=== PATIENT | female | born 1995 | race Caucasian/White ===

== ENCOUNTER → 2017-06-16 | Outpatient (REF) | payer OTHER ==
[~2017-06-16] MED LIST: AMOX875T; IBUP-1022 PO; MOTR200T44 PO
== END ==
LOC: M SFHCLERA 14:51
PROVIDERS: ATTEND Physician Assistant
DX: J02.9 Acute pharyngitis, unspecified (principal)

== ENCOUNTER 2017-06-18 22:21 | Emergency (ER) | payer OTHER ==
[~2017-06-18] VITALS: Ht 180.3 cm; Wt 113.6 kg
[2017-06-18] MEDS ORDERED: MOTR200T44 PO (22:32)
[2017-06-18] MEDS ORDERED: AMOX875T (22:32)
[2017-06-18] MEDS ORDERED: ONDANSETRON 4MG/2ML VIAL (J2405) IV ONE (23:00)
[2017-06-18] MEDS ORDERED: NS 1,000 ML IV ONE (23:00)
[2017-06-18] MEDS ORDERED: MORPHINE 4 MG/ML 1ML SYRINGE IV ONE (23:00)
[2017-06-18 23:28] LABS: BASO % 0.4 % (0.0-1.0); EOS # 0.3 10^3/uL (0.0-0.50); EOS % 4.1 % (0.0-3.0); IMMATURE GRANULOCYTE % 0.1 % (0-0); LYMPH # 2.8 10^3/uL (1.5-6.5); LYMPH % 41.2 % (24.0-44.0); MEAN CORPUSCULAR HEMOGLOBIN 28.3 pg (27.0-33.0); MEAN CORPUSCULAR HGB CONC 32.4 g/dl (32.0-36.5); MEAN CORPUSCULAR VOLUME 87.3 fl (80.0-96.0); MONO # 0.6 10^3/uL (0.0-0.8); MONO % 8.5 % (0.0-5.0); NEUTROPHILS # 3.1 10^3/uL (1.8-7.7); NEUTROPHILS % 45.7 % (36.0-66.0); PLATELET COUNT, AUTOMATED 259 10^3/uL (150-450); RED CELL DISTRIBUTION WIDTH 13.3 % (11.5-14.5); WHITE BLOOD COUNT 6.8 10^3/uL (4.0-10.0)
[2017-06-18 23:49] LABS: ANION GAP 8 MEQ/L (8-16); BLOOD UREA NITROGEN 13 MG/DL (7-18); CALCIUM LEVEL 8.5 MG/DL (8.5-10.1); CARBON DIOXIDE LEVEL 26 MEQ/L (21-32); CHLORIDE LEVEL 108 MEQ/L (98-107); CREATININE FOR GFR 0.78 MG/DL (0.55-1.02); GLOMERULAR FILTRATION RATE > 60.0 (>60); GLUCOSE, FASTING 122 MG/DL (70-105); POTASSIUM SERUM 3.9 MEQ/L (3.5-5.1); SODIUM LEVEL 142 MEQ/L (136-145)
[2017-06-18 23:53] LABS: ERYTHROCYTE SEDIMENTATION RATE 12 mm/hr (0-20)
[2017-06-19] MEDS ORDERED: ISOVUE-370 76% 100ML VIAL (Q9967) As Ordered ONE (00:01)
--- NOTE | 2017-06-19 01:46 | REPUSA ---
HISTORY: Left mastoid/neck swelling. COMPARISON: None. TECHNIQUE: Multiple thin section helically-acquired axially-displayed and helically acquired coronall y displayed computed tomographic images of the face are obtained from the mandible through the fronta l sinuses, with images obtained at soft tissue and bone window. 2D reformatted images were performed. FINDINGS: Unremarkable mastoid air cells. Mildly prominent cervical lymph nodes, probably reactive. Normal bony mineralization. No fractures. Normal orbits. Normal, clear paranasal sinuses. Normal oral and nasal cavities. Normal infratemporal fossa and deep parapharyngeal spaces with normal muscles of mastication. Normal parotid and submandibular glands. IMPRESSION: No evidence of mastoid effusion. Mildly prominent cervical lymph nodes, probably reactive. The largest measures 1.2 cm. Thank you for your kind referral of this patient
--- NOTE | 2017-06-19 01:46 | REPUSA ---
CLINICAL HISTORY: Left neck swelling. TECHNIQUE: Multiple axial CT images were obtained through the neck with IV contrast material. MPR cor onal and sagittal sequences were obtained. COMMENTS: Unremarkable mastoid air cells. No mastoid effusion. Mildly prominent cervical lymph nodes with the largest measuring 1.2 cm. The oropharyngeal soft tissues are normal and bilaterally symmetric. The piriform sinuses are normal. There is no supra or infraglottic laryngeal mass. The proximal trachea is normal. There is no paravertebral soft tissue mass. The salivary glands are normal. There is no deep cervical or jugular lymphadenopathy. The paravertebral soft tissue space is normal. Limited images through the posterior fossa demonstrate no evidence for tonsilar herniation. Evaluation of the visualized lung apices reveals no evidence for abnormality. There is no evidence for abnormal enhancement. IMPRESSION: Mildly prominent cervical lymph nodes with the largest measuring 1.2 cm. No mastoid effusion. No fluid collection or mass lesion. Thank you for your kind referral of this patient.
[2017-06-19] MEDS ORDERED: IBUP-1022 PO (01:55)
[2017-06-19 02:05] VITALS: BP 128/63
== END 2017-06-19 02:08 | disposition home or self-care (01) ==
LOC: M ED 22:21
DX: H92.02 Otalgia, left ear (principal); R59.0 Localized enlarged lymph nodes; F41.9 Anxiety disorder, unspecified
CPT/HCPCS: 70487; 70491; 80048; 83605; 85025; 85652; 86140; 96361; 96374; 96375; 99283; J2405; Q9967

== ENCOUNTER → 2017-11-12 | Outpatient (REF) | payer OTHER | LOC: M SFHCLERA 16:10 | DX: J02.9 Acute pharyngitis, unspecified (principal) ==

== ENCOUNTER → 2017-12-11 | Outpatient (CLI) | payer OTHER | LOC: M EKG 16:20 | DX: O24.011 Pre-existing type 1 diabetes mellitus, in pregnancy, first trimester (principal); Z3A.12 12 weeks gestation of pregnancy | CPT/HCPCS: 93005 ==

== ENCOUNTER 2018-04-24 05:39 | Emergency (ER) | payer OTHER ==
[2018-04-24] MEDS: AMOXICILLIN 500 MG CAP PO (07:23)
== END 2018-04-24 07:34 | disposition home or self-care (01) ==
LOC: M ED 05:39
DX: O99.89 Other specified diseases and conditions complicating pregnancy, childbirth and the puerperium (principal); H65.192 Other acute nonsuppurative otitis media, left ear; O24.419 Gestational diabetes mellitus in pregnancy, unspecified control; Z3A.32 32 weeks gestation of pregnancy; O99.343 Other mental disorders complicating pregnancy, third trimester; F41.9 Anxiety disorder, unspecified
CPT/HCPCS: 99283

== ENCOUNTER 2018-04-28 02:36 | Outpatient (CLI) | payer OTHER ==
[2018-04-28 04:55] LABS: HEMATOCRIT 37.3 % (36.0-47.0); HEMOGLOBIN 12.2 g/dl (12.0-15.5); MEAN CORPUSCULAR HGB CONC 32.7 g/dl (32.0-36.5); MEAN CORPUSCULAR VOLUME 85.6 fl (80.0-96.0); PLATELET COUNT, AUTOMATED 206 10^3/uL (150-450); RED BLOOD COUNT 4.36 10^6/uL (4.00-5.40); RED CELL DISTRIBUTION WIDTH 14.9 % (11.5-14.5)
[2018-04-28 05:24] LABS: ALBUMIN 2.8 GM/DL (3.2-5.2); ALBUMIN/GLOBULIN RATIO 0.72 (1.00-1.93); ALKALINE PHOSPHATASE 161 U/L (45-117); ALT/SGPT 51 U/L (12-78); ANION GAP 13 MEQ/L (8-16); AST/SGOT 63 U/L (7-37); BILIRUBIN,TOTAL 0.8 MG/DL (0.2-1.0); BLOOD UREA NITROGEN 7 MG/DL (7-18); CALCIUM LEVEL 8.5 MG/DL (8.5-10.1); CARBON DIOXIDE LEVEL 21 MEQ/L (21-32); CHLORIDE LEVEL 107 MEQ/L (98-107); CREATININE FOR GFR 0.48 MG/DL (0.55-1.30); GLOMERULAR FILTRATION RATE > 60.0 (>60); GLUCOSE, FASTING 89 MG/DL (70-100); LIPASE 133 U/L (73-393); POTASSIUM SERUM 3.7 MEQ/L (3.5-5.1); SODIUM LEVEL 141 MEQ/L (136-145); TOTAL PROTEIN 6.7 GM/DL (6.4-8.2)
[2018-04-28] MEDS: LR 1,000 ML IV ×2 (05:46)
[2018-04-28 05:50] LABS: APPEARANCE, URINE CLEAR (CLEAR); BACTERIA, URINE AUTO NEGATIVE (NEGATIVE); BILIRUBIN, URINE AUTO NEGATIVE (NEGATIVE); BLOOD, URINE BLOOD 2+ (NEGATIVE); COLOR, URINE YELLOW (YELLOW); GLUCOSE, URINE (UA) AUTO NEGATIVE (NEGATIVE); KETONE, URINE AUTO TRACE mg/dL (NEGATIVE); LEUKOCYTE ESTERASE, URINE AUTO NEGATIVE (NEGATIVE); NITRITE, URINE AUTO NEGATIVE (NEGATIVE); PROTEIN, URINE AUTO NEGATIVE (NEGATIVE); RBC, URINE AUTO 9 /HPF (0-3); SPECIFIC GRAVITY URINE AUTO 1.004 (1.002-1.035); SQUAMOUS EPITHELIAL CELL UR AU 1 /HPF (0-6); TRANSITIONAL EPITHELIAL AUTO <1 /HPF; WBC, URINE AUTO 1 /HPF (0-3)
== END 2018-04-28 07:01 | disposition home or self-care (01) ==
LOC: M LDO 02:36
DX: O26.893 Other specified pregnancy related conditions, third trimester (principal); R10.30 Lower abdominal pain, unspecified; O47.03 False labor before 37 completed weeks of gestation, third trimester; Z3A.33 33 weeks gestation of pregnancy
CPT/HCPCS: 76815

== ENCOUNTER 2018-05-31 16:27 | Outpatient (CLI) | payer OTHER | END 2018-05-31 17:30 | disposition home or self-care (01) | LOC: M LDO 16:27 | DX: O47.9 False labor, unspecified (principal); Z3A.38 38 weeks gestation of pregnancy | CPT/HCPCS: 59025 ==

== ENCOUNTER 2018-06-03 12:57 | Outpatient (CLI) | payer OTHER | END 2018-06-03 14:35 | disposition home or self-care (01) | LOC: M LDO 12:57 | DX: O26.893 Other specified pregnancy related conditions, third trimester (principal); O24.419 Gestational diabetes mellitus in pregnancy, unspecified control; O36.0130 Maternal care for anti-D [Rh] antibodies, third trimester, not applicable or unspecified; O13.3 Gestational [pregnancy-induced] hypertension without significant proteinuria, third trimester; Z3A.38 38 weeks gestation of pregnancy | CPT/HCPCS: 76815 ==

== ENCOUNTER 2018-06-07 09:28 | Inpatient (IN) | payer OTHER ==
[2018-06-07 11:07] LABS: HEMATOCRIT 35.9 % (36.0-47.0); MEAN CORPUSCULAR HEMOGLOBIN 28.6 pg (27.0-33.0); MEAN CORPUSCULAR HGB CONC 33.4 g/dl (32.0-36.5); MEAN CORPUSCULAR VOLUME 85.7 fl (80.0-96.0); PLATELET COUNT, AUTOMATED 185 10^3/uL (150-450); RED BLOOD COUNT 4.19 10^6/uL (4.00-5.40); RED CELL DISTRIBUTION WIDTH 14.9 % (11.5-14.5); WHITE BLOOD COUNT 5.4 10^3/uL (4.0-10.0)
[2018-06-07 11:31] LABS: ALT/SGPT 22 U/L (12-78); LDH LACTATE DEHYDROGENASE 167 U/L (84-246); URIC ACID 3.9 MG/DL (2.6-6.0)
[2018-06-07 11:31] LABS: AST/SGOT 17 U/L (7-37)
[2018-06-07 12:57] LABS: BEDSIDE GLUCOSE 117 MG/DL (70-105)
[2018-06-07 15:52] LABS: BEDSIDE GLUCOSE 66 MG/DL (70-105)
[2018-06-07] MEDS: LACTATED RINGER'S 1000 ML IV (17:20)
[2018-06-07] MEDS: OXYTOCIN DRIP 30 UNITS in APPROPRIATE DILUENT 1 EA IV (17:27)
[2018-06-07 17:56] LABS: BEDSIDE GLUCOSE 141 MG/DL (70-105)
[2018-06-07] MEDS: LR 1,000 ML IV (18:27)
[2018-06-07] MEDS: BUTORPHANOL 2 MG/ML INJ (J0595) IV (21:00)
[2018-06-07 22:04] LABS: BEDSIDE GLUCOSE 80 MG/DL (70-105)
[2018-06-08 00:09] LABS: BEDSIDE GLUCOSE 85 MG/DL (70-105)
[2018-06-08 00:14] LABS: BEDSIDE GLUCOSE 76 MG/DL (70-105)
[2018-06-08 04:03] LABS: BEDSIDE GLUCOSE 93 MG/DL (70-105)
[2018-06-08 04:08] LABS: BEDSIDE GLUCOSE 93 MG/DL (70-105)
[2018-06-08] MEDS ORDERED: fentaNYL 100 MCG/2 ML INJECTION (J3010) As Ordered (06:01)
[2018-06-08] MEDS ORDERED: FENTANYL 2MCG/ML ROPIVACAINE 0.2% IN 0.9% NACL 100ML IVBAG As Ordered (06:02)
[2018-06-08 06:19] LABS: BEDSIDE GLUCOSE 76 MG/DL (70-105)
[2018-06-08] MEDS ORDERED: REFRIGERATOR IV KEYS XX (06:47)
[2018-06-08] MEDS ORDERED: FENTANYL/ROPIVACAINE/NACL BAG 100 ML EPIDURAL (06:47)
[2018-06-08] MEDS ORDERED: EPIDURAL/PCA KEYS XX (06:47)
[2018-06-08] MEDS ORDERED: EPIDURAL COMMENT XX (06:47)
[2018-06-08] MEDS ORDERED: LACTATED RINGER'S 1000 ML IV (06:47)
[2018-06-08] MEDS ORDERED: ONDANSETRON 4MG/2ML VIAL (J2405) IV ×2 (06:47→14:15)
[2018-06-08] MEDS ORDERED: ePHEDrine SULFATE 25 MG/5 ML(5MG/ML) SYRINGE IV (06:47)
[2018-06-08] MEDS ORDERED: NALOXONE INJ 0.4 MG/1 ML VIAL (J2310) IV (06:47)
[2018-06-08] MEDS ORDERED: diphenhydrAMINE INJ 50MG/ML VIAL (J1200) IV (06:47)
[2018-06-08 08:09] LABS: BEDSIDE GLUCOSE 88 MG/DL (70-105)
[2018-06-08] MEDS: LR 1,000 ML IV (10:08)
[2018-06-08 10:15] LABS: BEDSIDE GLUCOSE 68 MG/DL (70-105)
[2018-06-08 12:00] LABS: BEDSIDE GLUCOSE 75 MG/DL (70-105)
[2018-06-08] MEDS: OXYTOCIN DRIP 30 UNITS in APPROPRIATE DILUENT 1 EA IV ×2 (14:07→14:50)
[2018-06-08] MEDS ORDERED: ERYTHROMYCIN OPHTH OINT OU (14:15)
[2018-06-08] MEDS ORDERED: HEPATITIS B VAC *BIRTH DOSE ONLY*(RECOMBIVAX HB) 5MCG/0.5ML VL/SYR IM (14:15)
[2018-06-08] MEDS ORDERED: DIBUCAINE 1% OINTMENT 30GM TOP (14:15)
[2018-06-08] MEDS ORDERED: PHYTONADIONE 1 MG/0.5 ML SYRINGE (J3430) IM (14:15)
[2018-06-08] MEDS: IBUPROFEN 800 MG TAB PO (16:43)
[2018-06-08] MEDS: MEASLES,MUMPS,RUBELLA VACCINE INJ (MMR-II) (90707) SC (17:37)
[2018-06-08] MEDS: DOCUSATE SODIUM 100 MG CAP PO (22:19)
[2018-06-09] MEDS: IBUPROFEN 800 MG TAB PO ×3 (02:56→18:28)
[2018-06-09 07:33] LABS: GLUCOSE, FASTING 135 MG/DL (70-100)
[2018-06-09] MEDS: PRENATAL VITAMINS CHEWABLE TABLET PO (08:51)
[2018-06-09] MEDS: DOCUSATE SODIUM 100 MG CAP PO ×2 (08:51→20:27)
[2018-06-09 10:10] LABS: FETAL SCREEN PROF. 1 1
[2018-06-09] MEDS: RHOGAM 300 MCG (1500 IU) INJ (J2790) IM (10:24)
[2018-06-09 15:51] LABS: BEDSIDE GLUCOSE 85 MG/DL (70-105)
[2018-06-09 15:51] LABS: BEDSIDE GLUCOSE 121 MG/DL (70-105)
[2018-06-09 15:51] LABS: BEDSIDE GLUCOSE 102 MG/DL (70-105)
[2018-06-09] MEDS: ACETAMINOPHEN TAB 650MG DOSE (2X325MG) PO (16:40)
[2018-06-09 20:26] LABS: BEDSIDE GLUCOSE 105 MG/DL (70-105)
[2018-06-10 07:09] LABS: BEDSIDE GLUCOSE 93 MG/DL (70-105)
[2018-06-10] MEDS: DOCUSATE SODIUM 100 MG CAP PO (08:35)
[2018-06-10] MEDS: PRENATAL VITAMINS CHEWABLE TABLET PO (08:35)
[2018-06-10] MEDS: IBUPROFEN 800 MG TAB PO (08:38)
== END 2018-06-10 11:10 | disposition home or self-care (01) | DRG 807 ==
LOC: M LDI 09:28 → M OBS 06-08 16:25
PROVIDERS: Midwife
PROC: 3E033VJ Introduction of Other Hormone into Peripheral Vein, Percutaneous Approach (ICD-10-PCS; 2018-06-07)
PROC: 10E0XZZ Delivery of Products of Conception, External Approach (ICD-10-PCS; principal; 2018-06-08)
PROC: 0HQ9XZZ Repair Perineum Skin, External Approach (ICD-10-PCS; 2018-06-08)
PROC: 10907ZC Drainage of Amniotic Fluid, Therapeutic from Products of Conception, Via Natural or Artificial Opening (ICD-10-PCS; 2018-06-08)
DX: O10.02 Pre-existing essential hypertension complicating childbirth (principal); Z37.0 Single live birth; O24.420 Gestational diabetes mellitus in childbirth, diet controlled; Z3A.39 39 weeks gestation of pregnancy; O99.214 Obesity complicating childbirth; E66.9 Obesity, unspecified; Z68.35 Body mass index [BMI] 35.0-35.9, adult; O70.0 First degree perineal laceration during delivery

== ENCOUNTER 2018-06-25 10:16 | Emergency (ER) | payer OTHER ==
[~2018-06-25] VITALS: Ht 180.3 cm; Wt 97.7 kg
[~2018-06-25 10:16] MED LIST changes: +AMOX500C PO; +CEFD1CAP8 PO; +COLA100C5 PO; +DIBU10OI TOP; +IBUP-1114 PO; +MAPA500T2 PO; +PREN1TAB18 PO
[2018-06-25] MEDS ORDERED: ONDANSETRON 4MG/2ML VIAL (J2405) IV ONE (11:00)
[2018-06-25] MEDS ORDERED: MORPHINE 2 MG/ML 1ML SYRINGE (J2270) IV ONE (11:00)
[2018-06-25] MEDS ORDERED: NS 1,000 ML IV ONE (11:00)
[2018-06-25 11:30] LABS: BASO % 0.6 % (0.0-1.0); EOS # 0.1 10^3/uL (0.0-0.50); EOS % 2.8 % (0.0-3.0); HEMATOCRIT 45.3 % (36.0-47.0); LYMPH # 1.1 10^3/uL (1.5-6.5); LYMPH % 30.2 % (24.0-44.0); MEAN CORPUSCULAR HEMOGLOBIN 28.4 pg (27.0-33.0); MEAN CORPUSCULAR HGB CONC 33.1 g/dl (32.0-36.5); MEAN CORPUSCULAR VOLUME 85.8 fl (80.0-96.0); MONO # 0.3 10^3/uL (0.0-0.8); MONO % 9.3 % (0.0-5.0); NEUTROPHILS % 56.5 % (36.0-66.0); PLATELET COUNT, AUTOMATED 252 10^3/uL (150-450); RED BLOOD COUNT 5.28 10^6/uL (4.00-5.40); WHITE BLOOD COUNT 3.5 10^3/uL (4.0-10.0)
[2018-06-25 12:11] LABS: ALBUMIN 3.5 GM/DL (3.2-5.2); ALT/SGPT 1071 U/L (12-78); AMYLASE 30 U/L (25-115); BILIRUBIN,TOTAL 1.5 MG/DL (0.2-1.0); BLOOD UREA NITROGEN 14 MG/DL (7-18); CALCIUM LEVEL 8.9 MG/DL (8.5-10.1); CARBON DIOXIDE LEVEL 26 MEQ/L (21-32); CHLORIDE LEVEL 105 MEQ/L (98-107); CREATININE FOR GFR 0.72 MG/DL (0.55-1.30); GLOMERULAR FILTRATION RATE > 60.0 (>60); GLUCOSE, FASTING 103 MG/DL (70-100); LIPASE 141 U/L (73-393); POTASSIUM SERUM 4.2 MEQ/L (3.5-5.1); SODIUM LEVEL 140 MEQ/L (136-145); TOTAL PROTEIN 7.3 GM/DL (6.4-8.2)
[2018-06-25] MEDS ORDERED: ISOVUE-370 76% 100ML VIAL (Q9967) As Ordered ONE (12:23)
--- NOTE | 2018-06-25 12:46 | REP ---
Clinical: Acute chest pain. Technique: Axial contrast enhanced images from the thoracic inlet to the upper abdomen using 100 ml Isovue 370 intravenous contrast material with coronal and sagittal re-formations. Findings: Satisfactory enhancement of the pulmonary vasculature is achieved and no filling defects are identified to suggest pulmonary embolus. Thoracic aorta is normal caliber without aneurysm or dissection. Heart and pericardium are normal. Bilateral lung samano are well aerated and clear without acute pulmonary parenchymal consolidation or atelectasis. No nodule or mass lesion. No pleural effusion/reaction. No pneumothorax. No adenopathy. Impression: No evidence for pulmonary embolus. No acute pleuroparenchymal or mediastinal process. Electronically Signed by Juan J Sanchez MD 06/25/2018 12:37 P
--- NOTE | 2018-06-25 13:47 | REP ---
Clinical: Elevated liver function tests Technique: Grigsby scale ultrasound using curved array transducer. Findings: The liver and pancreas are normal in contour, size, and echogenicity without focal hepatic or pancreatic lesions identified. The gallbladder demonstrates small amount of layering gravel/sludge and trace pericholecystic fluid with minimal wall thickening to 3.6 mm, but no sonographic Lindquist's sign or biliary ductal dilatation. The common bile duct measures 3.4 mm diameter. The right kidney is normal in reniform shape without hydronephrosis and measures 12.5 x 5.7 x 4.4 cm. No ascites. Visualized portions of the abdominal aorta normal. Impression: Small amount of layering sludge/gravel with trace pericholecystic fluid and minimal gallbladder wall thickening. No Lindquist's sign or biliary ductal dilatation to definitively diagnosis of acute cholecystitis by ultrasound. Electronically Signed by Juan J Sanchez MD 06/25/2018 01:38 P
[2018-06-25 14:15] VITALS: BP 129/79
[2018-06-25] MEDS ORDERED: ZOFR4TAB14 PO (14:15)
[2018-06-25] MEDS ORDERED: NORCOTAB PO (14:15)
--- NOTE | 2018-06-26 07:38 | ED PDOC ---
Post-Departure Follow-Up radiology report faxed to [facility] Daly Montgomery MD Jun 26, 2018 07:38
== END 2018-06-25 14:23 | disposition home or self-care (01) ==
LOC: M ED 10:16
DX: K80.20 Calculus of gallbladder without cholecystitis without obstruction (principal); F41.9 Anxiety disorder, unspecified
CPT/HCPCS: 36415; 71275; 76705; 80048; 80076; 81000; 81001; 82150; 83690; 85025; 85379; 87086; 96361; 96374; 96375; 99284; J2270; J2405; Q9967

== ENCOUNTER 2018-09-05 22:19 | Emergency (ER) | payer OTHER ==
[~2018-09-05] VITALS: Ht 180.3 cm; Wt 103.2 kg
[~2018-09-05 22:19] MED LIST changes: +NORCOTAB PO; +ZOFR4TAB14 PO
[2018-09-05 23:34] LABS: BASO % 0.2 % (0.0-1.0); EOS # 0.3 10^3/uL (0.0-0.50); EOS % 3.6 % (0.0-3.0); HEMATOCRIT 43.3 % (36.0-47.0); HEMOGLOBIN 14.2 g/dl (12.0-15.5); LYMPH # 3.3 10^3/uL (1.5-6.5); LYMPH % 40.9 % (24.0-44.0); MEAN CORPUSCULAR HGB CONC 32.8 g/dl (32.0-36.5); MEAN CORPUSCULAR VOLUME 85.2 fl (80.0-96.0); MONO # 0.7 10^3/uL (0.0-0.8); MONO % 8.2 % (0.0-5.0); NEUTROPHILS # 3.7 10^3/uL (1.8-7.7); NEUTROPHILS % 46.7 % (36.0-66.0); PLATELET COUNT, AUTOMATED 246 10^3/uL (150-450); RED BLOOD COUNT 5.08 10^6/uL (4.00-5.40)
[2018-09-06 00:14] LABS: HCG, SERUM QUALITATIVE NEGATIVE (NEGATIVE)
[2018-09-06 00:28] LABS: ALBUMIN 3.8 GM/DL (3.2-5.2); ALT/SGPT 46 U/L (12-78); BILIRUBIN,DIRECT 0.1 MG/DL (0.0-0.2); BILIRUBIN,TOTAL 0.4 MG/DL (0.2-1.0); BLOOD UREA NITROGEN 16 MG/DL (7-18); CALCIUM LEVEL 8.2 MG/DL (8.5-10.1); CARBON DIOXIDE LEVEL 26 MEQ/L (21-32); CHLORIDE LEVEL 108 MEQ/L (98-107); CREATININE FOR GFR 0.71 MG/DL (0.55-1.30); GLOMERULAR FILTRATION RATE > 60.0 (>60); GLUCOSE, FASTING 101 MG/DL (70-100); LIPASE 128 U/L (73-393); POTASSIUM SERUM 3.9 MEQ/L (3.5-5.1); SODIUM LEVEL 143 MEQ/L (136-145); TOTAL PROTEIN 7.3 GM/DL (6.4-8.2)
[2018-09-06] MEDS ORDERED: ONDANSETRON 4MG/2ML VIAL (J2405) IV ONE (01:00)
[2018-09-06] MEDS ORDERED: KETOROLAC 30 MG/ML VIAL (J1885) IV ONE (01:00)
--- NOTE | 2018-09-06 03:33 | REPVR ---
EXAM: US Abdomen Limited, Right Upper Quadrant EXAM DATE/TIME: 09/06/2018 1:47 AM CLINICAL HISTORY: 23 years old, female; Pain; Abdominal pain; Colic; Additional info: Upper abd pain, HX of gb dz TECHNIQUE: Real-time ultrasound of the abdomen with image documentation. Examination was focused on the right upper quadrant. COMPARISON: GALLBLADDER US 06/25/2018 1:15 PM FINDINGS: Liver: Coarse echogenic attenuating liver parenchyma. Gallbladder: Cholelithiasis. No evidence of acute cholecystitis. Common bile duct: Normal. No stones. No dilation. Pancreas: Visualized pancreas is unremarkable. Right kidney: Normal. No mass. No hydronephrosis. IMPRESSION: Cholelithiasis. No evidence of acute cholecystitis. Steatosis. Electronically signed by: Andrei Rajput On 09/06/2018 03:33:22 AM
[2018-09-06] MEDS ORDERED: HYOS1TAB PO (03:45)
[2018-09-06] MEDS ORDERED: HYOSCYAMINE SULFATE 0.125 MG SUBL TABLET PO ONE (03:45)
[2018-09-06 03:51] VITALS: BP 121/71
== END 2018-09-06 04:29 | disposition home or self-care (01) ==
LOC: M ED 22:19
DX: K80.70 Calculus of gallbladder and bile duct without cholecystitis without obstruction (principal); R11.0 Nausea
CPT/HCPCS: 76705; 80048; 80076; 81001; 83690; 84703; 85025; 87086; 96374; 96375; 99283; J1885; J2405

== ENCOUNTER 2018-09-13 09:12 | Day surgery (SDC) | payer OTHER ==
[~2018-09-13] VITALS: Ht 180.3 cm; Wt 104.7 kg
[~2018-09-13 09:12] MED LIST changes: +HYOS1TAB PO; +LIDOCAINE 1% MDV 20ML VIAL SQ PRN; +LIDOCAINE 2% INJ 100 MG/5 ML SDV (FOR ANES.) As Ordered ONE; +LR 1,000 ML IV ONE; +MIDAZOLAM INJ 2 MG/2 ML VIAL (J2250) As Ordered ONE; +PROPOFOL 200 MG/20 ML VIAL As Ordered ONE; +ROCURONIUM BROMIDE 50 MG/5 ML VIAL As Ordered ONE; +fentaNYL 250 MCG/5 ML INJECTION (J3010) As Ordered ONE
[2018-09-13] MEDS ORDERED: BUPIVACAINE/EPIN 0.25% 30 ML VIAL As Ordered ONE (09:40)
[2018-09-13 09:54] LABS: URINE PREG TEST NEGATIVE (NEGATIVE)
[2018-09-13] MEDS ORDERED: MIDAZOLAM INJ 2 MG/2 ML VIAL (J2250) As Ordered ONE (10:00)
[2018-09-13] MEDS ORDERED: SUGAMMADEX SODIUM 500 MG/5 ML VIAL (BRIDION) As Ordered ONE (10:26)
[2018-09-13] MEDS ORDERED: ONDANSETRON 4MG/2ML VIAL (J2405) As Ordered ONE (10:26)
[2018-09-13] MEDS ORDERED: dexameTHASONE 4 MG/ML 1ML VIAL (J1100) As Ordered ONE (10:26)
[2018-09-13] MEDS ORDERED: METOCLOPRAMIDE INJ 10MG/2ML VIAL (J2765) As Ordered ONE (10:26)
[2018-09-13] MEDS ORDERED: KETOROLAC 60 MG/2 ML VIAL (J1885) As Ordered ONE (10:26)
[2018-09-13] MEDS ORDERED: diphenhydrAMINE INJ 50MG/ML VIAL (J1200) As Ordered ONE (10:28)
[2018-09-13] MEDS: PERCOCET 5MG/325MG TAB PO PRN ×2 (11:15→11:52)
[2018-09-13] MEDS ORDERED: PERCOCET 5MG/325MG TAB As Ordered ONE (11:17)
[2018-09-13] MEDS ORDERED: LR 1,000 ML IV SCH (11:45)
[2018-09-13] MEDS ORDERED: NORCO, ANEXSIA 5/325MG TABLET (HYDROcodone/ACETAMINOPHEN) PO PRN (11:45)
[2018-09-13] MEDS ORDERED: METOCLOPRAMIDE INJ 10MG/2ML VIAL (J2765) IV PRN (11:45)
[2018-09-13] MEDS ORDERED: ONDANSETRON 4MG/2ML VIAL (J2405) IV PRN (11:45)
[2018-09-13] MEDS ORDERED: fentaNYL 100 MCG/2 ML INJECTION (J3010) IV PRN (11:45)
[2018-09-13] MEDS ORDERED: NORCOTAB PO (12:49)
[2018-09-13 13:50] VITALS: BP 135/74
--- NOTE | 2018-09-13 23:52 | RO ---
DATE OF PROCEDURE: 09/13/2018 PREOPERATIVE DIAGNOSIS: Symptomatic cholelithiasis. POSTOPERATIVE DIAGNOSIS: Symptomatic cholelithiasis. PROCEDURE: Laparoscopic cholecystectomy. SURGEON: Dr. Avila Joaquin ERECTING ENGINEER: None. ANESTHESIA: General. ESTIMATED BLOOD LOSS: 5 mL. COMPLICATIONS: None. INDICATION FOR PROCEDURE: The patient is a 23-year-old female who presents with persistent right upper quadrant abdominal pain for the past couple of months. Recommendation was to proceed with laparoscopic possible open cholecystectomy. Risks and benefits of the procedure not limited to but including bleeding, infection, hernia formation, damage to surrounding structures and need for further surgery were discussed in detail with the patient. Informed consent was obtained, procedure was planned. DESCRIPTION OF PROCEDURE: The patient was brought back to operating room three, after sufficient sedation, the abdomen was sterilely prepped and draped. Next, a time-out was done to confirm proper patient, proper procedure. Next, a stab incision was made in the in left upper quadrant, Veress needle was inserted and the abdomen was insufflated to 15 mmHg. Next, the 5 mm incision was made supraumbilically in the midline. A 5 mm Optiview port was used to gain access to the abdomen. Once the abdomen was entered, Veress needle site was examined. There were no signs of any injury. Veress needle was then removed. 11 mm port was placed subxiphoid, two 5 mm ports in the right upper quadrant. The fundus of the gallbladder grasped, elevated up towards the right shoulder. Omental adhesions were gently taken down with blunt dissection. Then, at the fundus, dissection was completed bluntly until the cystic duct and artery were both clearly identified. They were both then doubly clipped and cut. Gallbladder was then removed from gallbladder fossa using electrocautery, brought out through the subxiphoid port site using a 10 mm EndoCatch bag. The abdomen was examined to confirm hemostasis. The abdomen was then desufflated. Skin incisions closed with #4-0 Vicryl subcuticular sutures. The abdomen was cleaned and dried. Steri-Strips, 4x4, and tape were applied, thus ending procedure.
== END 2018-09-13 13:50 | disposition home or self-care (01) ==
LOC: M SDC 09:12
PROVIDERS: ATTEND Surgery
DX: K80.20 Calculus of gallbladder without cholecystitis without obstruction (principal); F41.9 Anxiety disorder, unspecified
CPT/HCPCS: 47562; 84703; 88304; J1200; J1885; J2250; J2405; J2765; J3010

== ENCOUNTER 2019-06-27 19:58 | Emergency (ER) | payer OTHER ==
[~2019-06-27] VITALS: Ht 180.3 cm; Wt 111.8 kg
[~2019-06-27 19:58] MED LIST changes: +HYDR-3715 PO; -LIDOCAINE 1% MDV 20ML VIAL SQ PRN; -LIDOCAINE 2% INJ 100 MG/5 ML SDV (FOR ANES.) As Ordered ONE; -LR 1,000 ML IV ONE; -MIDAZOLAM INJ 2 MG/2 ML VIAL (J2250) As Ordered ONE; -NORCOTAB PO; -PROPOFOL 200 MG/20 ML VIAL As Ordered ONE; -ROCURONIUM BROMIDE 50 MG/5 ML VIAL As Ordered ONE; -fentaNYL 250 MCG/5 ML INJECTION (J3010) As Ordered ONE
[2019-06-27] MEDS ORDERED: PRENTAB9 PO (20:06)
[2019-06-27] MEDS ORDERED: ACETAMINOPHEN 500 MG TAB PO ONE (22:00)
[2019-06-27 22:26] VITALS: BP 138/69
== END 2019-06-27 22:27 | disposition home or self-care (01) ==
LOC: M ED 19:58
DX: O9A.212 Injury, poisoning and certain other consequences of external causes complicating pregnancy, second trimester (principal); S46.912A Strain of unspecified muscle, fascia and tendon at shoulder and upper arm level, left arm, initial encounter; X58.XXXA Exposure to other specified factors, initial encounter; Y92.89 Other specified places as the place of occurrence of the external cause; H93.92 Unspecified disorder of left ear; Z3A.21 21 weeks gestation of pregnancy; O99.342 Other mental disorders complicating pregnancy, second trimester; F41.9 Anxiety disorder, unspecified

== ENCOUNTER 2019-10-31 16:25 | Inpatient (IN) | payer OTHER ==
[~2019-10-31] VITALS: Ht 180.3 cm; Wt 118.4 kg
[~2019-10-31 16:25] MED LIST changes: +PRENTAB9 PO
--- NOTE | 2019-10-31 17:43 | HPEPDOC ---
Obstetrical History & Physical General Date of Admission October 31, 2019 at 16:25 History of Present Illness patient is a 24 yo @ 39+1 wks gestation presents for social induction. spouse was deployed and induction scheduled for him to coordinate coming home for delivery of baby. denies cramping/vb. Chief Complaint: Other Information Provided By: Patient Age: 24 : 2 Term: 1 Pre-term: 0 Abortions: 0 Livin Care Care: Good Care Dating Final EDC: November 06, 2019 Final EDC for Daily Update: November 06, 2019 Final EDC by: LMP, 1st trimester (US) Past Medical History Past Obstetrical History : Past Obstetrical History: Multigravida ( x 1) Type of Delivery: Spontaneous Vaginal Del. Past Medical History Medical History obesity Surgical History: Denies/None Family History Significant Family History: No pertinent family hx Social History Marital Status: Family situation: Spouse/partner home * Smoker: non-smoker Alcohol: Denies Drugs: denies Imunizations Tdap status: declined Influenza Status: current Allergies Coded Allergies: No Known Allergies (Unverified , 06/18/17) Medications Scheduled No.137/Iron/Folic Acd ( Vitamin Tablet) 1 Each Tablet, 1 TAB PO DAILY Physical Examination Physical Examination GENERAL: Alert and oriented times three. BREAST: . ABDOMEN: Gravid and non-tender to touch. FETUS: Is vertex (VTX) by sterile vaginal examination (SVE), fetus is vertex (VTX) by Colten, confirmed with TAUS (OP) HEART RATE: Regular rate and rhythm. LUNGS: Clear to auscultation (CTA). EXTREMITIES: No edema. No clonus. EFW: 3800gm Laboratory Data 24H LABS Laboratory Tests 2 10/31/19 16:30: Serology Scanned Report Hepatitis B Testing Pertinent Laboratoy Data Blood Type: A- RBC Antibody Screen: Negative HIV: Negative Hepatitis B: Negative Rapid Plasma Reagin: Nonreactive Rubella: Immune Varicella: Immune Chlamydia/Gonorrhea: Negative Group B Streptococcus: Negative Anatomy Ultrasound Placenta Location: Anterior Normal Anatomy: Yes Placenta Previa: No Vaginal Examination Dilation: None Effacement: 30% Station: Other (high) Cervical Consistency: Medium Cervical Position: Posterior Presentation: Cephalic presentation Assessment Heart Rate (FHR): 140 Variability: Moderate Accelerations: Positive Decelerations: None Tocometer Contractions: Yes Frequency: irregular Assessment/Plan Assessment patient is a 24 yo @ 39+1wks gestation admitted for social induction. p atient without concerns. patient counseled on external and internal monitoring. Discussed risks of emergent section, infection, bleeding requiring blood transfusion and associated risks, use of forceps or vacuums for operative vaginal delivery and associated risks, and episiotomy discussed with patient. Plan Admit and orient. Final Block Press Operator and consent. Diet: regular Group B Streptococcus (GBS) negative. Labs and intravenous (IV) per unit protocol. cytotec, grayson bulb, oxytocin and arom as indicated for iol anesthesia consult pelvis proven to 6lbs + DO PAMELLA Gaviria LUAT N. DO October 31, 2019 17:43
[2019-10-31 17:58] LABS: HEMATOCRIT 35.8 % (36.0-47.0); HEMOGLOBIN 11.9 g/dl (12.0-15.5); MEAN CORPUSCULAR HEMOGLOBIN 29.6 pg (27.0-33.0); MEAN CORPUSCULAR HGB CONC 33.2 g/dl (32.0-36.5); MEAN CORPUSCULAR VOLUME 89.1 fl (80.0-96.0); PLATELET COUNT, AUTOMATED 179 10^3/uL (150-450); RED BLOOD COUNT 4.02 10^6/uL (4.00-5.40); WHITE BLOOD COUNT 7.1 10^3/uL (4.0-10.0)
[2019-10-31 19:06] VITALS: BP 132/72
[2019-10-31] MEDS: miSOPROStol 25 MCG 1/4 TAB (S0191) SL SCH ×2 (19:10→23:25)
[2019-10-31 21:10] VITALS: BP 115/68
[2019-10-31 23:24] VITALS: BP 122/65
[2019-11-01] VITALS (35 sets, daily range): BP systolic 105–163; BP diastolic 55–90
[2019-11-01] MEDS: miSOPROStol 25 MCG 1/4 TAB (S0191) SL SCH ×2 (03:56→10:24)
--- NOTE | 2019-11-01 06:16 | IPNPDOC ---
Text Note Date of Service The patient was seen on 11/01/19. NOTE patient is a 24 yo @ 39+2wks admitted for IOL. she received cytotec 25mcg x 3 doses. she i feeling mild ctx. vitals: normal NAD FHT: 140/mod patel/pos accel/no decel toco: ctx q 3mins ce: 50/-3, soft, posterior (cervix was 2-3, attempt at placing grayson bulb stretched to 3cm) a/p patient not in labor, start pit for continued q3mins contractions. recheck in 6hrs. sooner as needed. Khadra, VS,Dorise, I+O VS, Fishbone, I+O Laboratory Tests 10/31/19 17:47 Vital Signs Date Time Temp Pulse Resp B/P (MAP) Pulse Ox O2 Delivery O2 Flow Rate FiO2 11/01/19 03:57 98.2 115 18 136/74 (94) ODALYS CAN DO November 01, 2019 06:16
[2019-11-01] MEDS ORDERED: OXYTOCIN DRIP 30 UNITS in IV 1 EA IV SCH ×2 (06:30→16:52)
[2019-11-01] MEDS ORDERED: LR 1,000 ML IV SCH (10:30)
[2019-11-01] MEDS ORDERED: LR 500 ML IV ONE (13:15)
[2019-11-01] MEDS ORDERED: FENTANYL 2MCG/ML ROPIVACAINE 0.2% IN 0.9% NACL 100ML IVBAG As Ordered ONE (13:23)
[2019-11-01] MEDS ORDERED: EPIDURAL/PCA KEYS XX PRN (15:15)
[2019-11-01] MEDS ORDERED: NALOXONE INJ 0.4MG/1ML VIAL (J2310 PER 1MG) IV PRN (15:15)
[2019-11-01] MEDS ORDERED: FENTANYL/ROPIVACAINE/NACL BAG 100 ML EPIDURAL SCH (15:15)
[2019-11-01] MEDS ORDERED: ePHEDrine SULFATE 25 MG/5 ML(5MG/ML) SYRINGE IV PRN (15:15)
[2019-11-01] MEDS ORDERED: ONDANSETRON 4MG/2ML VIAL IV PRN ×2 (15:15→17:00)
[2019-11-01] MEDS ORDERED: LACTATED RINGER'S 1000 ML IV PRN (15:15)
[2019-11-01] MEDS ORDERED: REFRIGERATOR IV KEYS XX PRN (15:15)
[2019-11-01] MEDS ORDERED: EPIDURAL COMMENT XX SCH (15:15)
[2019-11-01] MEDS ORDERED: diphenhydrAMINE 50MG/ML VIAL (J1200) IV PRN (15:15)
[2019-11-01] MEDS ORDERED: ANUSOL HC CREAM 30GM TOP PRN (17:00)
[2019-11-01] MEDS ORDERED: MOM 30ML SUSPENSION UDC PO PRN (17:00)
[2019-11-01] MEDS ORDERED: MEASLES,MUMPS,RUBELLA VACCINE INJ (MMR-II) (90707) SC SCH (17:00)
[2019-11-01] MEDS ORDERED: DIBUCAINE 1% OINTMENT 30GM TOP PRN (17:00)
[2019-11-01] MEDS ORDERED: RHOGAM 300 MCG (1500 IU) INJ (J2790) IM SCH (17:00)
[2019-11-01] MEDS ORDERED: METHYLERGONOVINE MALEATE 0.2 MG TAB PO PRN (17:00)
[2019-11-01] MEDS ORDERED: SLF 3 ML SYR IV PRN (19:15)
[2019-11-01] MEDS: DOCUSATE SODIUM 100 MG CAP PO PRN (20:22)
[2019-11-01] MEDS: IBUPROFEN 800 MG TAB PO PRN (20:22)
[2019-11-01] MEDS: SLF 3 ML SYR IV SCH (22:03)
[2019-11-02] MEDS: ACETAMINOPHEN 500 MG TAB PO PRN ×3 (01:24→13:36)
[2019-11-02] MEDS: SLF 3 ML SYR IV SCH (05:44)
[2019-11-02 06:00] VITALS: BP 125/60
[2019-11-02] MEDS: IBUPROFEN 800 MG TAB PO PRN ×2 (06:05→15:05)
[2019-11-02] MEDS: DOCUSATE SODIUM 100 MG CAP PO PRN (08:20)
[2019-11-02] MEDS ORDERED: PRENATAL VITAMINS CHEWABLE TABLET PO SCH (09:00)
[2019-11-02] MEDS ORDERED: DIBU10OI TOP (17:04)
[2019-11-02] MEDS ORDERED: PROC1CRE5 TOP (17:04)
[2019-11-02] MEDS ORDERED: DOCU100C16 PO (17:04)
[2019-11-02] MEDS ORDERED: ACET-683 PO (17:04)
[2019-11-02] MEDS ORDERED: IBUP80TA PO (17:04)
== END 2019-11-02 18:43 | disposition home or self-care (01) | DRG 807 ==
LOC: M LDI 16:25 → M OBS 11-01 19:47
PROVIDERS: ADMIT Advanced Practice Midwife; ATTEND Advanced Practice Midwife
PROC: 3E0P7GC Introduction of Other Therapeutic Substance into Female Reproductive, Via Natural or Artificial Opening (ICD-10-PCS; 2019-10-31)
PROC: 10E0XZZ Delivery of Products of Conception, External Approach (ICD-10-PCS; principal; 2019-11-01)
PROC: 10907ZC Drainage of Amniotic Fluid, Therapeutic from Products of Conception, Via Natural or Artificial Opening (ICD-10-PCS; 2019-11-01)
DX: O80 Encounter for full-term uncomplicated delivery (principal); Z37.0 Single live birth; Z3A.39 39 weeks gestation of pregnancy

== ENCOUNTER 2019-12-13 20:54 | Emergency (ER) | payer OTHER ==
[~2019-12-13] VITALS: Ht 180.3 cm; Wt 107.4 kg
[2019-12-13 20:54] VITALS: BP 135/76
[~2019-12-13 20:54] MED LIST changes: +ACET-683 PO; +DOCU100C16 PO; +IBUP80TA PO; +PROC1CRE5 TOP
[2019-12-13] MEDS ORDERED: BACI500O21 TOP (21:50)
== END 2019-12-13 21:56 | disposition home or self-care (01) ==
LOC: M ED 20:54
DX: M79.671 Pain in right foot (principal)